=== PATIENT | female | born 1980 | race Caucasian/White ===

== ENCOUNTER 2018-04-21 12:20 | Emergency (ER) | payer BC ==
[2018-04-21] MEDS ORDERED: NORCO 5-325 TA1 EACH PO (15:41)
== END 2018-04-21 15:45 | disposition home or self-care (01) ==
LOC: ED 12:20
DX: S63.502A Unspecified sprain of left wrist, initial encounter (principal); S00.83XA Contusion of other part of head, initial encounter; W22.8XXA Striking against or struck by other objects, initial encounter
CPT/HCPCS: 70450; 70486; 71260; 72125; 73110; 73560; 74177; 80053; 81001; 85025; 96374; 96375; 99284-25; J2405; J3010; Q9967